=== PATIENT | male | born 1950 | race Caucasian/White ===

== ENCOUNTER → 2019-07-11 | Outpatient (CLI) | payer MEDICARE ==
--- NOTE | 2019-07-11 12:31 | US ---
EXAMINATION TYPE: US scrotum with doppler. Grayscale and color Doppler Duplex imaging performed of t he scrotum. DATE OF EXAM: 07/11/2019 COMPARISON: NONE CLINICAL HISTORY: N50.89 swelling. Rt side swelling x1 month EXAM MEASUREMENTS: TESTICLES: Right Testicle: 3.4 x 2.9 x 3.5 cm Left Testicle: 4.1 x 2.5 x 3.0 cm EPIDIDYMIS HEAD: Right Epididymis: In the area of the right epididymis, there is a cystic area with septations visual ized measuring 9.5 x 6.7 x 8.8 cm. Left Epididymis: 0.9 cm Doppler performed to assess for testicular vascularity; bilateral color flow and waveforms are seen. Presence of hydroceles: No Presence of varicoceles: No Testicular echotexture is homogenous and symmetric. IMPRESSION: Large septated epididymal cyst on the right
== END | disposition home or self-care (01) ==
LOC: RADUSWWP 11:48
PROVIDERS: ATTEND Family Medicine
DX: N50.3 Cyst of epididymis (principal); K40.90 Unilateral inguinal hernia, without obstruction or gangrene, not specified as recurrent
CPT/HCPCS: 76870; 93975